=== PATIENT | female | born 1945 | race African-American/Black ===

== ENCOUNTER 2019-12-07 14:09 | Inpatient (IN) | payer OTHER, MEDICAID ==
[~2019-12-07] VITALS: Ht 144.8 cm; Wt 77.6 kg
[2019-12-07] VITALS (8 sets, daily range): BP systolic 78–187; BP diastolic 25–88
[2019-12-07] MEDS ORDERED: SODIUM CHLORIDE 0.9% 500 ML IVB ONE (14:45)
[2019-12-07] MEDS ORDERED: ONDANSETRON HCL 4 MG/2 ML VIAL IV ONE (14:45)
[2019-12-07] MEDS ORDERED: MORPHINE SULFATE 4 MG/ML SYR/VIAL IV ONE (14:45)
[2019-12-07 15:03] LABS: Basophils # (auto) 0 10 ^3/uL (0-0.2); Basophils % (auto) 0.3 % (0.0-2.0); Eosinophils # (auto) 0 10 ^3/uL (0-0.8); Hematocrit 43.8 % (36.0-46.0); Hemoglobin 13.9 g/dL (12.2-16.2); Lymphocytes # (auto) 0.9 10 ^3/uL (0.4-5.4); Lymphocytes % (auto) 7.9 % (10.0-50.0); Mean Corpuscular Hemoglobin 28.4 pg (28.0-32.0); Mean Corpuscular Hgb Conc. 31.6 g/dL (32.0-36.0); Mean Corpuscular Volume 89.9 fL (80.0-100.0); Monocytes # (auto) 0.8 10 ^3/uL (0-1.3); Monocytes % (auto) 6.8 % (0.0-12.0); Platelet Count (auto) 242 10^3/uL (140-450); Red Blood Cells 4.88 10^6/uL (4.0-5.20); Red Cell Distribution Width 15.9 % (11.8-14.3); White Blood Cell 11.8 10^3/uL (4.4-10.8)
[2019-12-07 15:11] LABS: Albumin 2.9 g/dL (3.4-5.0); Calcium 9.2 mg/dL (8.5-10.1); Potassium 5.4 mmol/L (3.5-5.1)
[2019-12-07] MEDS ORDERED: NOREPINEPHRINE 8 MG/250ML KIT 250 ML IV ONE (15:12)
[2019-12-07] MEDS ORDERED: SODIUM CHLORIDE 0.9% 1,000 ML IV ONE ×3 (15:15→16:15)
[2019-12-07] MEDS ORDERED: NOREPINEPHRINE 8 MG/250ML KIT 250 ML IV SCH (15:15)
[2019-12-07 15:16] LABS: BUN/Creatinine Ratio 15.5; Bilirubin, Total 0.7 mg/dL (0.2-1.0); Total Protein 7.5 g/dL (6.4-8.2)
[2019-12-07] MEDS: NOREPINEPHRINE 8 MG/250ML KIT 250 ML IV SCH ×2 (15:24→22:30)
[2019-12-07] MEDS ORDERED: metroNIDAZOLE 500MG/100ML 100 ML IV ONE (15:45)
[2019-12-07] MEDS ORDERED: PIPERACILLIN-TAZOB 3.375GM 100 ML IV ONE (15:45)
[2019-12-07] MEDS ORDERED: MORPHINE SULF INJ 2 MG/ML SYRINGE 1ML IV PRN ×2 (16:15→17:30)
[2019-12-07] MEDS ORDERED: CEFTRIAXONE SODIUM 2 GM in D5W 5% 50 ML IV SCH (16:15)
[2019-12-07] MEDS ORDERED: ONDANSETRON HCL 4 MG/2 ML VIAL IV PRN (16:15)
[2019-12-07] MEDS ORDERED: NITROGLYCERIN 0.4 MG SL TAB SL PRN ×2 (16:15→17:30)
[2019-12-07] MEDS ORDERED: methylPREDNISolone SOD SUCC 125 MG/2 ML VL ONE (16:22)
[2019-12-07] MEDS ORDERED: cefTRIAXone SOD 1,000 MG VL ONE (16:22)
[2019-12-07 16:43] LABS: Lactic Acid w/Reflex 6.8 mmol/L (0.4-2.0)
[2019-12-07] MEDS ORDERED: methylPREDNISolone SOD SUCC 125 MG/2 ML VL IV ONE (16:45)
[2019-12-07] MEDS ORDERED: HYDR-392 (17:01)
[2019-12-07] MEDS ORDERED: CELE1CAP8 PO (17:01)
[2019-12-07] MEDS ORDERED: ATOR20TA50 PO (17:01)
[2019-12-07] MEDS ORDERED: FURO40TA4 PO (17:01)
[2019-12-07] MEDS ORDERED: FAMO20TA10 PO (17:01)
[2019-12-07] MEDS ORDERED: NIFE30TA66 (17:01)
[2019-12-07] MEDS ORDERED: POTA-180 PO (17:01)
[2019-12-07] MEDS ORDERED: LOSA-39 PO (17:01)
[2019-12-07] MEDS ORDERED: GOLYTELY 4L KIT PO ONE (18:15)
[2019-12-07 18:23] LABS: INR 1.1 (0.9-1.15)
[2019-12-07] MEDS ORDERED: VASOPRESSIN 50 UNITS in D5W 5% 247.5 ML IV SCH ×3 (19:00→22:00)
[2019-12-07] MEDS: SODIUM CHLORIDE 0.9% 1,000 ML IV SCH ×2 (19:09→22:30)
[2019-12-07] MEDS ORDERED: VASOPRESSIN 20 UNIT/ML ONE ×2 (19:46→19:50)
[2019-12-07 20:32] LABS: Lactic Acid w/Reflex 6.2 mmol/L (0.4-2.0)
[2019-12-07] MEDS ORDERED: metroNIDAZOLE 500MG/100ML 100 ML IV SCH (22:00)
[2019-12-07] MEDS ORDERED: SODIUM BICARBONATE 8.4% INJ 50ML SYRINGE ONE (22:42)
[2019-12-07] MEDS ORDERED: AMIODARONE 450mg/250ml AE 250 ML IV ONE ×2 (22:54→23:15)
[2019-12-07] MEDS ORDERED: AMIODARONE HCL 150 MG in D5W 5% 100 ML IV ONE (23:00)
[2019-12-07] MEDS ORDERED: SODIUM CHLORIDE 0.9% 2,000 ML IV ONE (23:15)
[2019-12-07] MEDS ORDERED: SODIUM BICARBONATE 50ML VIAL 100 ML in SODIUM CHLORIDE 0.9% 1,000 ML IV ONE (23:30)
[2019-12-08] VITALS (19 sets, daily range): BP systolic 104–197; BP diastolic 33–97
[2019-12-08] MEDS ORDERED: MIDAZOLAM DRIP 50 mg/50mL 50 ML IV SCH (02:00)
[2019-12-08] MEDS ORDERED: SODIUM BICARBONATE 8.4% INJ 50ML SYRINGE ONE ×2 (02:30→04:14)
[2019-12-08] MEDS ORDERED: SODIUM BICARBONATE 8.4 % INJ 50ML VIAL IV ONE ×2 (02:30)
[2019-12-08] MEDS: NOREPINEPHRINE 8 MG/250ML KIT 250 ML IV SCH (03:00)
[2019-12-08] MEDS ORDERED: PANTOPRAZOLE 40 MG/10 ML VIAL INJ IV SCH ×2 (03:00→10:00)
[2019-12-08] MEDS ORDERED: DexAMETHasone SOD PHOS 10MG/1ML VIAL INJ ONE (03:20)
[2019-12-08] MEDS ORDERED: DexAMETHasone SOD PHOS 10MG/1ML VIAL INJ IV ONE (03:30)
[2019-12-08] MEDS ORDERED: SODIUM CHLORIDE 0.9% 3,000 ML IV ONE (03:30)
[2019-12-08] MEDS ORDERED: EPINEPHrine HCL 250 ML IV ONE (03:51)
[2019-12-08] MEDS ORDERED: D5W 5% 100 ML MINI BAG IV ONE (04:11)
[2019-12-08] MEDS ORDERED: ATROPINE SULF 1 MG/10ml SYR IV ONE (04:11)
[2019-12-08] MEDS ORDERED: CALCIUM CHLOR(10%) 100MG/ML 10ML SYRINGE IV ONE (04:11)
[2019-12-08] MEDS ORDERED: AMIODARONE HCL (50 MG/ ML) 3 ML VIAL IV ONE (04:11)
[2019-12-08] MEDS ORDERED: SODIUM BICARBONATE 8.4% INJ 50ML SYRINGE IV ONE (04:11)
[2019-12-08] MEDS ORDERED: EPINEPHrine HCL 1 MG/10 ML SYRG IV ONE (04:11)
[2019-12-08] MEDS ORDERED: EPINEPHrine HCL 250 ML IV SCH (04:15)
[2019-12-08] MEDS ORDERED: AMIODARONE 450mg/250ml AE 250 ML IV SCH (05:15)
== END 2019-12-08 04:12 | disposition expired | DRG 871 ==
LOC: EDUNIT# 14:09 → ER 14:09 → EDBD 14:09 → TELE 14:10 → ICU WEST 22:10
PROVIDERS: ADMIT Hospitalist; ATTEND Hospitalist
PROC: 0BH17EZ Insertion of Endotracheal Airway into Trachea, Via Natural or Artificial Opening (ICD-10-PCS; principal; 2019-12-07)
PROC: 5A1935Z Respiratory Ventilation, Less than 24 Consecutive Hours (ICD-10-PCS; 2019-12-07)
PROC: 5A12012 Performance of Cardiac Output, Single, Manual (ICD-10-PCS; 2019-12-08)
DX: A41.9 Sepsis, unspecified organism (principal); J18.9 Pneumonia, unspecified organism; N17.0 Acute kidney failure with tubular necrosis; R65.21 Severe sepsis with septic shock; K57.92 Diverticulitis of intestine, part unspecified, without perforation or abscess without bleeding; E87.2 Acidosis; K57.32 Diverticulitis of large intestine without perforation or abscess without bleeding; K55.9 Vascular disorder of intestine, unspecified; K56.600 Partial intestinal obstruction, unspecified as to cause; I12.9 Hypertensive chronic kidney disease with stage 1 through stage 4 chronic kidney disease, or unspecified chronic kidney disease; N18.9 Chronic kidney disease, unspecified; K56.41 Fecal impaction; E78.5 Hyperlipidemia, unspecified; E87.5 Hyperkalemia; I10 Essential (primary) hypertension; K64.9 Unspecified hemorrhoids; Z90.711 Acquired absence of uterus with remaining cervical stump; M19.90 Unspecified osteoarthritis, unspecified site; G89.29 Other chronic pain; M54.9 Dorsalgia, unspecified; R00.1 Bradycardia, unspecified; I46.8 Cardiac arrest due to other underlying condition
CPT/HCPCS: 31500; 36415; 36600; 43762; 71045; 74176; 80053; 82805; 82962; 83605; 83690; 85025; 85610; 86850; 86900; 86901; 87040; 87070; 87081; 87205; 94002; 96361; 96365; 96366; 96368; 96375; 99291; G0378; J0171; J0696; J1100; J3490; J7060